=== PATIENT | male | born 1945 ===

== ENCOUNTER 2022-04-28 06:28 | Outpatient (REF) | payer OTHER, SELFPAY ==
--- NOTE | ~2022-04-28 | XR_ITS ---
EXAMINATION: XR KNEE, STANDING AP XR KNEE, 2 VIEWS CLINICAL INFORMATION: Pain. COMPARISON: None TECHNIQUE: Standing AP view of both knees and sunrise and lateral view of the left knee. FINDINGS: Left Knee: Bone alignment is normal. No fracture or dislocation is seen. There is chondrocalcinosis. 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 There is a joint effusion. There are high-attenuation densities seen questionable for ossified intra-articular loose bodies. There is atherosclerotic disease. AP STANDING: Standing AP view of the right knee demonstrates question of lateral femoral-tibial chondrocalcinosis. XR/XR knee standing BI IMPRESSION: Left knee: Arthritis and chondrocalcinosis. Joint effusion and question intra-articular loose bodies.
--- NOTE | ~2022-04-28 | XR_ITS ---
EXAMINATION: XR KNEE, STANDING AP XR KNEE, 2 VIEWS CLINICAL INFORMATION: Pain. COMPARISON: None TECHNIQUE: Standing AP view of both knees and sunrise and lateral view of the left knee. FINDINGS: Left Knee: Bone alignment is normal. No fracture or dislocation is seen. There is chondrocalcinosis. 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 There is a joint effusion. There are high-attenuation densities seen questionable for ossified intra-articular loose bodies. There is atherosclerotic disease. AP STANDING: Standing AP view of the right knee demonstrates question of lateral femoral-tibial chondrocalcinosis. XR/XR knee LT 2V IMPRESSION: Left knee: Arthritis and chondrocalcinosis. Joint effusion and question intra-articular loose bodies.
== END 2022-04-28 06:29 | disposition home or self-care (01) ==
LOC: HO.HOSX 06:28
PROVIDERS: Visit Provider Physician Assistant
DX: M17.12 Unilateral primary osteoarthritis, left knee (principal); M10.9 Gout, unspecified
CPT/HCPCS: 20610; 73560; 73565; 99202; J1020